=== PATIENT | male | born 2000 | race Caucasian/White ===

== ENCOUNTER 2019-11-17 15:45 | Emergency (ER) | payer OTHER, SELFPAY ==
[2019-11-17 15:46] VITALS: BP 148/77; PULSE 99; RESP 16; TEMP 37.3; O2SAT 98; BMI 23.7
--- NOTE | 2019-11-17 16:10 | HMH.EDUTC ---
[facility] [place] Clinical Impression: UTI (urinary tract infection) Qualifiers: Urinary tract infection type: site unspecified Hematuria presence: without hematuria Qualified Code(s): N39.0 - Urinary tract infection, site not specified Disposition: Home, Self-Care Condition on Discharge: Good Instructions: DI for Urinary Tract Infection (UTI) Additional Instructions: Drink plenty of fluids. Take tylenol or ibuprofen for pain or fever. Follow up with your regular doctor. GO TO THE ER FOR ANY WORSENING SYMPTOMS Prescriptions: Sulfamethoxazole/Trimethoprim [Bactrim DS tablet] 1 each PO BID 10 Days #20 tab Transmission Status: Received by [id number] Referrals: PCP,No [Primary Care Provider] - Time of Disposition: 16:29 Medical Decision Making - Medical Records Medical records reviewed: No: I reviewed the patient's medical records. - Rg Inquiry Pt receiving controlled substance: No Vital Signs: 11/17/19 15:46 11/17/19 16:17 11/17/19 16:30 Temperature 99.2 F 99.5 F 99.5 F Temperature Source Oral Oral Pulse Rate 90 Pulse Rate [Left Radial] 99 H 90 Respiratory Rate 16 14 14 Blood Pressure 114/77 Blood Pressure [Right Arm] 148/77 H 114/77 Blood Pressure Mean [Right Arm] 100 89 Blood Pressure Source [Right Arm] Automatic Cuff Blood Pressure Position [Right Arm] Sitting Sitting 02 Sat by Pulse Oximetry 98 96 Oxygen Delivery Method Room Air Room Air - Lab Data Lab Results 11/17/19 16:10: Urine Color Yellow, Urine Appearance Clear, Urine pH 6.0, Ur Specific [place] 1.025, Urine Protein Negative, Urine Glucose (UA) Negative, Urine Ketones Negative, Urine Blood 2+, Urine Nitrate Negative, Urine Bilirubin Negative, Urine Urobilinogen 0.2, Ur Leukocyte Esterase Negative [facility] [place] HPI - General Stated complaint: possible uti Time Seen by Provider: 11/17/19 16:10 Mode of Arrival: Ambulatory Source of Information: Patient Limitations: No Limitations Description of Symptoms (Recalled from Triage Doc. by RN): TO ED PER [facility] CAR WITH C/O BURNING AFTER URINATION X 2 DAYS. DENIES FEVER, CHILLS, NAUSEA, VOMITING. - History of Present Illness Provider Complaint: He c/o low back pain and burning after he urinates for the past 2 days. He also c/o low back pain, but he describes it as mild. He denies any personal history of kidney stones. - Related Data Previous Rx's Medication Instructions Recorded Sulfamethoxazole/Trimethoprim 1 each PO BID 10 Days #20 tab 11/17/19 [Bactrim DS tablet] Allergies Allergy/AdvReac Type Severity Reaction Status Date / Time No Known Allergies Allergy Verified 06/19/19 13:53 [facility] History - Hepatitis A Screen Attestation statement:: This patient has been screened for Hepatitis A risk factors. I have reviewed the patient's past medical history: Yes Other Surgeries: Yes: No Previous Surgery - Social History Smoking Status: Current every day smoker Tobacco Type: e-cigarettes Alcohol Intake: never Substance Use Type: denies use Occupational Status: employed ROS Obtained: Yes All systems reviewed & no additional complaints - Constitutional Constitutional: Denies chills, Denies fever(s) - Eyes Eyes: Denies eye discharge - ENT Ears, Nose, Mouth, and Throat: Denies dizziness, Denies otalgia, Denies sore throat - Cardiovascular Cardiovascular: Denies chest pain - Genitourinary Male Genitourinary: Reports as per HPI Physical Exam - General General appearance: alert, in no apparent distress - Head Head exam: atraumatic, normocephalic, normal inspection - Eye Eye exam: Present: normal appearance, PERRL, EOMI - ENT ENT exam: Present: normal exam, normal oropharynx, mucous membranes moist, TM's normal bilaterally, normal external ear exam - Neck Neck exam: Present: normal inspection, full ROM, trachea midline. Absent: meningismus, lymphadenopathy - Chest Chest inspection: Present: normal inspection, symmet
[2019-11-17 16:11] LABS: Color,Urine Yellow (Yellow)
[2019-11-17 16:12] LABS: Apearance,Urine Clear (Clear); Blood, Urine 2+ (Negative); Glucose,Urine (UA) Negative (Negative); Ketones,Urine Negative (Negative); Protein,Urine Negative (Negative); Specific Gravity, Urine 1.025 (1.005-1.030)
[2019-11-17 16:13] LABS: Bilirubin,Urine Negative (Negative); UTC Leukocyte Esterase,Urine Negative (Negative); UTC Nitrate,Urine Negative (Negative); Urobilinogen,Urine 0.2 EU/dl (0.2)
[2019-11-17 16:17] VITALS: BP 114/77; PULSE 90; RESP 14; TEMP 37.5; O2SAT 96; BMI 23.7
[2019-11-17 16:30] VITALS: BP 114/77; PULSE 90; RESP 14; TEMP 37.5; O2SAT 96
[2019-11-20 19:20] LABS: Neisseria gonorrhoeae, NAA Negative (Negative)
== END 2019-11-17 16:34 | disposition home or self-care (01) ==
LOC: UTC 16:22
PROVIDERS: Emergency Provider Nurse Practitioner Family
DX: N30.00 Acute cystitis without hematuria (principal); F17.290 Nicotine dependence, other tobacco product, uncomplicated
CPT/HCPCS: 81003; 87086; 87491; 87591; 99201

== ENCOUNTER 2020-06-08 01:26 | Emergency (ER) | payer OTHER, SELFPAY ==
[2020-06-08 01:44] VITALS: BP 143/83; PULSE 98; RESP 16; TEMP 36.8; O2SAT 98; BMI 25.0
--- NOTE | 2020-06-08 01:53 | XR_ITS ---
PROCEDURE: XR RIBS RT MIN 3V W CXR1V CLINICAL INDICATION: Pain after twisting motion Right rib pain COMPARISON: No exams were available for comparison FINDINGS: Frontal view of the chest shows no acute finding. Multiple views of the right ribs show no displaced fracture lytic change or blastic change. If pain persists, consider follow-up exam or CT with 3D reformats in 7-10 days. IMPRESSION: No acute findings. Dictated by: Luca Pathak MD 06/08/2020 08:21 Luca Pathak MD in [place] 06/08/2020 08:21
--- NOTE | 2020-06-08 02:40 | CT_ITS ---
PROCEDURE: CT CHEST WO CON CLINICAL INDICATION: right rib pain Posttraumatic pain COMPARISON: No exams were available for comparison TECHNIQUE: Axial images obtained with sagittal and coronal reformats. All CT scans at the facility use one or more dose reduction, viz: automated exposure control, ma/kV adjustment per patient size (including targeted exams where dose is matched to indication, i.e. head), or iterative reconstruction technique. FINDINGS: HEART AND MEDIASTINAL STRUCTURES: Unremarkable. LUNGS AND PLEURAL SPACES: Unremarkable. BONY STRUCTURES: No acute fracture apparent. There is an old fracture involving the 10th rib posteriorly UPPER ABDOMEN: Unremarkable. ADDITIONAL FINDINGS: No other significant abnormalities. IMPRESSION: Chronic appearing left 10th rib fracture otherwise negative Dictated by: Luca Pathak MD 06/08/2020 10:07 Luca Pathak MD in [place] 06/08/2020 10:07
--- NOTE | 2020-06-08 02:58 | HMH.EDGENADL ---
ED Disposition Clinical Impression: Rib fracture Qualifiers: Encounter type: initial encounter Rib fracture type: single rib Fracture type: closed Laterality: right Qualified Code(s): S22.31XA - Fracture of one rib, right side, initial encounter for closed fracture Disposition: Home, Self-Care Condition on Discharge: Good Instructions: DI for Acute Pain -- Adult Additional Instructions: use meds and see pcp for follow up Referrals: PCP,No [Primary Care Provider] - - Critical Care Critical Care Time: No Attestation: On 06/08/20, the high probability of a clinically significant, sudden or life threatening deterioration of the following system(s) required my full and direct attention, intervention and personal management. The time I documented below is in addition to time spent performing reported procedures but includes the following listed in this critical care notation. Medical Decision Making - Medical Records Medical records reviewed: Yes: I reviewed the patient's medical records. - Rg Inquiry Pt receiving controlled substance: No Vital Signs: 06/08/20 01:44 Temperature 98.2 F Temperature Source Oral Pulse Rate [Right] 98 H Respiratory Rate 16 Blood Pressure [Right Arm] 143/83 H Blood Pressure Mean [Right Arm] 103 Blood Pressure Source [Right Arm] Automatic Cuff Blood Pressure Position [Right Arm] Sitting 02 Sat by Pulse Oximetry 98 Oxygen Delivery Method Room Air - Lab Data Lab results reviewed: Yes: I reviewed the patient's lab results. Orders (Tests/Meds): ORDERS Category Date Time Status CT chest wo con Stat Cat Scan 06/08/20 02:40 Ordered XR ribs RT min 3V w CXR1V Stat Exams 06/08/20 01:53 Taken - Radiology Data #1 Image(s): Chest Image Reviewed: Yes I reviewed the patient's radiology image Preliminary Findings: Normal/NAD - CT Data CT Scan: Chest Time Received: 03:[address] Reviewed: Yes: I have viewed the radiologist's interpretation Preliminary Findings: Abnormal (rib fx ) General Adult HPI - General Chief complaint: PAIN Stated complaint: Rt side rib pain Time Seen by Provider: 06/08/20 02:00 Mode of Arrival: Ambulatory Source of Information: Patient, Medical Record Limitations: No Limitations Description of Symptoms (Recalled from ER Triage Doc. by RN): Pt states he heard a pop to his right ribs after a twisting motion and now has right rib pain about 1300 today - History of Present Illness HPI narrative: has popping sd after has mm spasm Onset (ago): hour(s) Location: chest Severity: moderate Consistency: intermittent Associated symptoms: denies other symptoms Treatments prior to arrival: none - Related Data Home Medications Medication Instructions Recorded Confirmed No Known Home Medications 06/08/20 06/08/20 Allergies Allergy/AdvReac Type Severity Reaction Status Date / Time No Known Allergies Allergy Verified 06/19/19 13:53 [facility] History - Hepatitis A Screen Drug use history?: No High risk sexual behaviors?: No History of sexually transmitted infection?: No Currently employed?: No Childcare worker?: No Do you have indoor plumbing?: Yes Do you have electricity?: Yes Attestation statement:: This patient has been screened for Hepatitis A risk factors. I have reviewed the patient's past medical history: Yes Medical History: Denies:: Diabetes Mellitus Type 1, Diabetes Mellitus Type 2 Other Surgeries: Yes: No Previous Surgery - Social History Smoking Status: Current every day smoker Tobacco Type: e-cigarettes # Packs/Day (cigarettes): 1 Alcohol Intake: never Substance Use Type: denies use Occupational Status: employed ROS Obtained: Yes All systems reviewed & no additional complaints - Constitutional Constitutional: Denies fever(s) - Eyes Eyes: Denies change in vision - ENT Ears, Nose, Mouth, and Throat: Denies abnormal hearing - Cardiovascular Cardiovascular: Reports as per HPI, Reports chest pain,
[2020-06-08 03:56] VITALS: BP 138/84; PULSE 92; RESP 16; TEMP 36.8; O2SAT 98
== END 2020-06-08 03:58 | disposition home or self-care (01) ==
PROVIDERS: Emergency Provider Emergency Medicine
DX: S22.31XA Fracture of one rib, right side, initial encounter for closed fracture (principal); X50.1XXA Overexertion from prolonged static or awkward postures, initial encounter; Y92.019 Unspecified place in single-family (private) house as the place of occurrence of the external cause
CPT/HCPCS: 71101; 71250; 99282

== ENCOUNTER 2021-01-03 09:08 | Emergency (ER) | payer OTHER, SELFPAY ==
[2021-01-03 09:14] VITALS: BP 157/94; PULSE 86; RESP 18; O2SAT 97; BMI 27.7
[2021-01-03 09:15] VITALS: BP 157/94; PULSE 86; RESP 18; TEMP 37.3; O2SAT 97; BMI 27.8
--- NOTE | 2021-01-03 09:50 | HMH.EDUTC ---
[facility] [place] Dis[place] Clinical Impression: Upper respiratory infection, viral Disposition: Home, Self-Care Condition on Discharge: Good Instructions: DI for Viral Upper Respiratory Infection -- Adult Additional Instructions: covid swab was sent to lab, call later today for results. self isolate until test results are known to be negative No sign of a bacterial infection. Likely viral. Viruses can take 7-14 days to run their course. Nasal saline and bulb syringe or nose Marisela to remove nasal drainage to help with nasal congestion. Hard to eat, drink, sleep with nasal congestion so important to keep this cleaned out. Monitor temp. Tylenol or Motrin as needed for pain or fever Encourage fluids, water, Gatorade, Powerade, Pedialyte if infant/toddler/child Warm salt water gargles Warm fluids Sore throat lozenges Sleep elevated Humidifier/vaporizer Follow-up immediately for new or worsening symptoms or no noticeable improvement over the next 48-72 hours. Prescriptions: predniSONE [Prednisone 20mg Tab] 20 mg PO BID #10 tab Transmission Status: Pending to [id number] Referrals: Provider,Referral, [Primary Care Provider] - Forms: Work/School Release Time of Disposition: 10:03 Medical Decision Making - Rg Inquiry Pt receiving controlled substance: No Vital Signs: 01/03/21 09:14 01/03/21 09:15 Temperature 99.2 F Temperature Source Oral Pulse Rate [Left Radial] 86 86 Respiratory Rate 18 18 Blood Pressure [Right Arm] 157/94 H 157/94 H Blood Pressure Mean [Right Arm] 115 115 Blood Pressure Source [Right Arm] Automatic Cuff Automatic Cuff Blood Pressure Position [Right Arm] Sitting Sitting 02 Sat by Pulse Oximetry 97 97 Oxygen Delivery Method Room Air Room Air Orders (Tests/Meds): ORDERS Category Date Time Status Full Resp Panel w/COVID ([facility]) Routine Lab 01/03/21 09:54 Ordered [facility] [place] HPI - General Chief complaint: [facility] Stated complaint: cough,runny nose,headache Time Seen by Provider: 01/03/21 09:50 Mode of Arrival: Ambulatory Source of Information: Patient Limitations: No Limitations Description of Symptoms (Recalled from Triage Doc. by RN): PATIENT C/O RUNNY NOSE AND DRY COUGH X 3 DAYS HEENT Symptoms (Recalled from RN notes): Yes Resp Symptoms (Recalled from RN notes): Yes Skin Symptoms (Recalled from RN notes): No MS Symptoms (Recalled from RN notes): No Functional Status (Recalled from RN notes): WNL - History of Present Illness Provider Complaint: 20 yr old male presnets for cough. pt states he was exposed to someone with rsv 2 weeks ago and feels better all symptoms improved but cough is staying. - Related Data Previous Rx's Medication Instructions Recorded predniSONE [Prednisone 20mg 20 mg PO BID #10 tab 01/03/21 Tab] Allergies Allergy/AdvReac Type Severity Reaction Status Date / Time No Known Allergies Allergy Verified 06/19/19 13:53 - Worker's Comp Is this a Worker's Comp case?: No [facility] History - Hepatitis A Screen Drug use history?: No High risk sexual behaviors?: No History of sexually transmitted infection?: No Currently employed?: No Childcare worker?: No Do you have indoor plumbing?: Yes Do you have electricity?: Yes Attestation statement:: This patient has been screened for Hepatitis A risk factors. I have reviewed the patient's past medical history: Yes Medical History: Denies:: Diabetes Mellitus Type 1, Diabetes Mellitus Type 2 Other Surgeries: Yes: No Previous Surgery - Social History Smoking Status: Current every day smoker Tobacco Type: e-cigarettes # Packs/Day (cigarettes): 1 Alcohol Intake: never Substance Use Type: denies use Occupational Status: employed ROS Obtained: Yes Systems reviewed as appropriate & no additional complaints - Constitutional Constitutional: Reports system reviewed and no additional complaints, except as docu, Denies fever(s) - Eyes Eyes: Reports system reviewed and n
[2021-01-03 09:59] VITALS: BP 157/94; PULSE 86; RESP 18; TEMP 37.3; O2SAT 97
[2021-01-03 10:11] LABS: Adenovirus,PCR Not Detected (NotDetected); Bordetella Pertussis Not Detected (NotDetected); Chlamydophila Pneumoniae, PCR Not Detected (NotDetected); Coronavirus 229E Not Detected (NotDetected); Coronavirus NL63 Not Detected (NotDetected); Coronavirus OC43 Not Detected (NotDetected); Coronovirus HKU1,PCR Not Detected (NotDetected); Human Metapneumovirus Not Detected (NotDetected); Influenza A, PCR Not Detected (NotDetected); Influenza AH1, 2009 Not Detected (NotDetected); Influenza AH1, PCR Not Detected (NotDetected); Influenza AH3,PCR Not Detected (NotDetected); Influenza B, PCR Not Detected (NotDetected); Mycoplasma Pneumoniae, PCR Not Detected (NotDetected); Parainfluenza 1, PCR Not Detected (NotDetected); Parainfluenza 2, PCR Not Detected (NotDetected); Parainfluenza 3, PCR Not Detected (NotDetected); Parainfluenza 4, PCR Not Detected (NotDetected); Respiratory Syncytial Virus Not Detected (NotDetected); Rhinovirus/Enterovirus Not Detected (NotDetected)
[2021-01-03 11:47] LABS: Coronavirus 19, PCR Detected (NotDetected)
== END 2021-01-03 10:06 | disposition home or self-care (01) ==
PROVIDERS: Emergency Provider Nurse Practitioner Family
DX: U07.1 COVID-19 (principal); J06.9 Acute upper respiratory infection, unspecified; F17.290 Nicotine dependence, other tobacco product, uncomplicated
CPT/HCPCS: 87581; 87632; 87798; 99202; C9803; G0463; U0003; U0005

== ENCOUNTER 2021-01-24 22:10 | Emergency (ER) | payer OTHER, SELFPAY ==
[2021-01-24 22:11] VITALS: BP 164/80; PULSE 97; RESP 16; TEMP 36.6; O2SAT 97; BMI 27.7
--- NOTE | 2021-01-24 22:22 | CT_ITS ---
PROCEDURE INFORMATION: Exam: CT Abdomen And Pelvis With Contrast Exam date and time: 01/24/2021 10:22 PM Age: 20 years old Clinical indication: Abdominal pain; Generalized; Additional info: Abd pain TECHNIQUE: Imaging protocol: Computed tomography of the abdomen and pelvis with contrast. Radiation optimization: All CT scans at this facility use at least one of these dose optimization techniques: automated exposure control; mA and/or kV adjustment per patient size (includes targeted exams where dose is matched to clinical indication); or iterative reconstruction. Contrast material: ISOVUE; Contrast volume: 70 ml; Contrast route: IV; COMPARISON: CT CHEST WO CON 06/08/2020 2:52 AM FINDINGS: Lungs: No mass/infiltrate at either lung base. No pleural effusion. Liver: The liver is normal in size and attenuation. No intrahepatic biliary dilitation. Gallbladder and bile ducts: Normal. No calcified stones. No ductal dilation. Gallbladder wall thickness is normal. Pancreas: Normal. No ductal dilation. Spleen: Normal. No splenomegaly. Adrenal glands: Normal. No mass. Kidneys and ureters: Normal. No hydronephrosis. Stomach and bowel: Unremarkable. No obstruction. No mucosal thickening. Small bowel mesentery is normal. Appendix: Unremarkable. Intraperitoneal space: Unremarkable. No free air. No significant fluid collection. Vasculature: Unremarkable. No abdominal aortic aneurysm. Lymph nodes: There is small visible lymph nodes identified within mesentery of the right lower quadrant and the periaortic region. The largest of these measures 11 mm in size. No enlarged lymph nodes. Urinary bladder: Unremarkable as visualized. Limited distention. Reproductive: Unremarkable as visualized. Bones/joints: There are old healed fractures of the posterior aspect of the left 10th rib and the right 11th rib. No acute fracture. Soft tissues: Unremarkable. IMPRESSION: No acute process within the abdomen or pelvis.
[2021-01-24 22:25] LABS: Microscopic, Urine URINE MICROSCOPIC (MICROSCOPIC)
[2021-01-24 22:27] LABS: Appearance,Urine CLEAR (Clear); Bilirubin,Urine Negative (Negative); Blood, Urine TRACE-L (Negative); Color,Urine YELLOW (Yellow); Glucose,Urine (UA) Negative (Negative); Ketones,Urine Negative (Negative); Leukocyte Esterase,Urine Negative (Negative); Nitrate,Urine Negative (Negative); PH,Urine 6.5 (5.0-8.5); Protein,Urine Negative (Negative); Specific Gravity, Urine <= 1.005 (1.005-1.030); Urobilinogen,Urine 0.2 EU/dl (0.2)
[2021-01-24 22:42] LABS: Basophils # 0.1 K/mm3 (0-0.2); Basophils % 0.9 % (0.1-2.0); Eosinophils # 0.3 K/mm3 (0.0-0.4); Eosinophils % 2.9 % (0.1-12.0); Hematocrit 42.6 % (42.0-52.0); Hemoglobin 14.3 g/dL (14.1-18.0); Lymphocytes # 3.5 K/mm3 (0.7-4.5); Mean Corpuscular HGB Conc 33.6 g/dL (31.8-35.4); Mean Corpuscular Hemoglobin 29.9 pg (27.0-31.2); Mean Corpuscular Volume 89.1 fl (80-94); Mean Platelet Volume 7.5 fl (7.4-10.4); Monocytes # 0.5 K/mm3 (0.1-1.0); Monocytes % 5.2 % (1.7-9.3); Neutrophils # 5.1 K/mm3 (1.8-7.8); Platelet Count 347 K/mm3 (142-424); Red Blood Count 4.78 M/mm3 (4.60-6.20); Red Cell Distribution Width 13.2 % (11.5-17.5); White Blood Count 9.4 K/mm3 (4.8-10.8)
[2021-01-24 22:44] LABS: RBC,Urine Occasional #/hpf (0-3); WBC,Urine Occasional #/hpf (0-3)
[2021-01-24 22:49] LABS: Alanine Aminotransferase 38 U/L (12-78); Albumin Level 4.5 g/dl (3.5-5.0); Albumin/Globulin Ratio 1.6 (1.1-1.8); Alkaline Phosphatase 99 U/L (38-126); Amylase 91 U/L (30-110); Anion Gap 12.6 mEq/L (5-15); Aspartate Amino Transferase 32 U/L (17-59); Blood Urea Nitrogen 13 mg/dl (9-20); Calcium 9.3 mg/dl (8.4-10.2); Carbon Dioxide 29 mmol/L (22.0-30.0); Chloride 102 mmol/L (98-107); Creatinine Clearance Estimated 197 mL/min (50-200); Estimated Glomerular Filt Rate 122 ml/min (>60); GFR (African American) 148 ML/MIN (>60); Globulin 2.8 g/dL (1.3-3.2); Glucose 107 mg/dl (74-100); Lipase 245 U/L (23-300); Potassium 3.6 mmoL/L (3.5-5.1); Sodium 140 mmol/L (136-145); Total Protein,Serum 7.3 g/dl (6.3-8.2)
[2021-01-24 22:50] LABS: Bilirubin,Total 0.1 mg/dl (0.2-1.3)
[2021-01-24 22:55] LABS: C-Reactive Protein 7.4 mg/L (0-4)
[2021-01-24 23:05] LABS: Erythrocyte Sedimentation Rate 23 mm/hr (0-15)
[2021-01-24 23:09] LABS: Procalcitonin 0.047 ng/mL (0.0-2.0)
--- NOTE | 2021-01-25 01:10 | HMH.EDNVD ---
ED Disposition Clinical Impression: Abdominal pain Qualifiers: Abdominal location: epigastric Qualified Code(s): R10.13 - Epigastric pain Disposition: Home, Self-Care Condition on Discharge: Good Instructions: DI for Acute Abdominal Pain Additional Instructions: will need out patient eval Referrals: Provider,Referral, [Primary Care Provider] - - Critical Care Critical Care Time: No Attestation: On 01/24/21, the high probability of a clinically significant, sudden or life threatening deterioration of the following system(s) required my full and direct attention, intervention and personal management. The time I documented below is in addition to time spent performing reported procedures but includes the following listed in this critical care notation. Medical Decision Making - Medical Records Medical records reviewed: Yes: I reviewed the patient's medical records. - Rg Inquiry Pt receiving controlled substance: No Vital Signs: 01/24/21 22:11 Temperature 97.8 F Temperature Source Oral Pulse Rate [Right] 97 H Respiratory Rate 16 Blood Pressure [Right Arm] 164/80 H Blood Pressure Mean [Right Arm] 108 02 Sat by Pulse Oximetry 97 - Lab Data Lab results reviewed: Yes: I reviewed the patient's lab results. Lab Results 01/24/21 22:15: Urine Color Yellow, Urine Appearance Clear, Urine pH 6.5, Ur Specific [place] <= 1.005, Urine Protein Negative, Urine Glucose (UA) Negative, Urine Ketones Negative, Urine Blood Trace-l, Urine Nitrate Negative, Urine Bilirubin Negative, Urine Urobilinogen 0.2, Ur Leukocyte Esterase Negative, Urine RBC Occasional, Urine WBC Occasional, Ur Squamous Epith Cells None, Urine Bacteria None 01/24/21 22:31: WBC 9.4, RBC 4.78, Hgb 14.3, Hct 42.6, MCV 89.1, MCH 29.9, MCHC 33.6, RDW 13.2, Plt Count 347, MPV 7.5, Neut % (Auto) 54.0, Lymph % (Auto) 37.0, [place] % (Auto) 5.2, Eos % (Auto) 2.9, Baso % (Auto) 0.9, Neut # (Auto) 5.1, Lymph # (Auto) 3.5, [place] # (Auto) 0.5, Eos # (Auto) 0.3, Baso # (Auto) 0.1, ESR 23 H 01/24/21 22:31: Sodium 140, Potassium 3.6, Chloride 102, Carbon Dioxide 29, Anion Gap 12.6, BUN 13, Creatinine 0.80, Estimated Creat Clear 197, Estimated GFR 122, Est GFR ( Amer) 148, Glucose 107 H, Calcium 9.3, Total Bilirubin 0.1 L, AST 32, ALT 38, Alkaline Phosphatase 99, C-Reactive Protein 7.4 H, Total Protein 7.3, Albumin 4.5, Globulin 2.8, Albumin/Globulin Ratio 1.6, Amylase 91, Lipase 245, Procalcitonin 0.047 Result diagrams: 01/24/21 22:31 01/24/21 22:31 Orders (Tests/Meds): ED MEDICATIONS Generic Name Dose Route Start Last Admin Trade Name Freq PRN Reason Stop Dose Admin Sodium Chloride 1,000 mls @ 999 mls/hr 01/24/21 22:30 01/24/21 22:32 Sod Chlor 0.9% 1000ml Bag IV 01/24/21 23:30 999 mls/hr .Q1H1M ROBERT Administration Sodium Chloride 8 ml 01/24/21 22:24 Sodium Chloride 0.9% 10ml Vial IV 02/23/21 22:23 NEEDED PRN dilute pepcid Discontinued Medications Generic Name Dose Route Start Last Admin Trade Name Freq PRN Reason Stop Dose Admin Famotidine 20 mg 01/24/21 22:24 01/24/21 22:34 Famotidine 20mg/2ml Vial IV 01/24/21 22:25 20 mg ONCE ONE Administration Iopamidol 70 ml 01/24/21 22:49 01/24/21 22:50 Iopamidol-370 (76%);100ml Bottle IV 01/24/21 22:50 70 ml ONCE ONE Administration Ketorolac Tromethamine 30 mg 01/24/21 22:24 01/24/21 22:32 Ketorolac 30mg/Ml Vial IV 01/24/21 22:25 30 mg ONCE ONE Administration Metoclopramide HCl 10 mg 01/24/21 22:24 01/24/21 22:34 Metoclopramide Hcl 10mg/2ml Vial IVP 01/24/21 22:25 10 mg ONCE ONE Administration Ondansetron HCl 4 mg 01/24/21 22:24 01/24/21 22:32 Ondansetron 4mg/2ml Vial IV 01/24/21 22:25 4 mg ONCE ONE Administration Sodium Chloride 10 ml 01/24/21 22:49 01/24/21 22:50 Sodium Chloride 0.9% 10ml Syr (Rad Only) IV 01/24/21 22:50 10 ml ONCE ONE Administration - CT Data CT Scan: Abdomen, Pelvis Time
[2021-01-25 01:41] VITALS: BP 147/81; PULSE 82; RESP 16; TEMP 36.6; O2SAT 98
== END 2021-01-25 01:45 | disposition home or self-care (01) ==
PROVIDERS: Emergency Provider Emergency Medicine
DX: R10.13 Epigastric pain (principal); F17.290 Nicotine dependence, other tobacco product, uncomplicated
CPT/HCPCS: 74177; 80053; 81001; 82150; 83690; 84145; 85025; 85651; 86140; 96365; 96375; 99283; J2405; Q9967

== ENCOUNTER 2022-09-13 20:05 | Emergency (ER) | payer BC, SELFPAY ==
[2022-09-13 20:06] VITALS: BP 156/88; PULSE 93; RESP 18; TEMP 37.1; O2SAT 98; BMI 27.8
--- NOTE | 2022-09-13 20:27 | HMH.EDGENADL ---
Discharge Plan Disposition Patient Disposition: Home, Self-Care Prescriptions Prescriptions: New ciprofloxacin HCl [Cipro] 500 mg tablet 500 mg PO BID Qty: 14 0RF doxycycline hyclate 100 mg capsule 100 mg PO BID Qty: 14 0RF Referrals Follow up/Referrals: Provider,Referral, [Primary Care Provider] - See instructions Activity Restrictions/Add. Instructions Additional Instructions/Restrictions: Follow-up with your primary care physician within the next few days. Return the emergency department should you have worsening pain swelling or any other concerns within the next 8 hours Clinical Impressions Clinical Impression: Cellulitis of forearm Instructions Patient Instructions: DI for Skin Abscess Discharge ED Provider: Brittany (ED)Mohan General Adult HPI General Chief complaint: Skin/Abscess/Foreign Body Stated complaint: possiblr infected tattoo Time Seen by Provider: 09/13/22 20:10 Mode of Arrival: Ambulatory Source of Information: Patient Limitations: No Limitations Description of Symptoms (Recalled from ER Triage Doc. by RN): pt c/o possible infection on left afm after tattoo done 2 days ago. the pt states that he has done all recomended care thus far. there is sparatic bubbling in certain shaded areas of the tattoo. History of Present Illness HPI narrative: 22-year-old male presents with tach due to his left arm that is red and swollen now. He says he has been taking care of it with antibiotic ointment however it has gotten infected. There is babbling over the tattoo. No fever chills nausea vomiting abdominal pain chest pain or headache. Related Data Previous Rx's Medication Instructions Recorded ciprofloxacin HCl 500 mg tablet 500 mg PO BID #14 tabs 09/13/22 (Cipro) doxycycline hyclate 100 mg capsule 100 mg PO BID #14 caps 09/13/22 Allergies Allergy/AdvReac Type Severity Reaction Status Date / Time No Known Allergies Allergy Verified 06/19/19 13:53 [facility] Disclaimer: The information contained in this section may have been updated after the patient was seen, as this information can be updated by other users. Social History Smoking Status: Current every day smoker tobacco type: e-cigarettes alcohol intake: never substance use type: denies use current occupational status: employed Travel in the last 8 weeks: None ROS Obtained: Yes All systems reviewed & no additional complaints except as documented Constitutional Constitutional: Denies fatigue and Denies fever(s) Eyes Eyes: Denies dry eyes ENT Ears, Nose, Mouth, and Throat: Denies hearing loss Cardiovascular Cardiovascular: Denies diaphoresis and Denies dyspnea Respiratory Respiratory: Denies dyspnea and Denies wheezing Gastrointestinal Gastrointestingal: Denies coffee ground emesis Genitourinary Male Genitourinary: Denies flank pain Musculoskeletal Musculoskeletal: Denies joint swelling Integumentary/Breasts Skin/Breast: Denies furuncle Neurologic Neurologic: Denies confusion Endocrine Endocrine: Denies fatigue Hematologic/Lymphatic Henatologic/Lymphatic: Denies easy bleeding Allergic/Immunologic Allergic/Immunologic: Denies wheezing Physical Exam General General appearance: alert and in no apparent distress Eye Eye exam: Present PERRL and EOMI ENT ENT exam: Present normal exam and normal oropharynx Neck Neck exam: Present normal inspection Chest Chest inspection: Present symmetric chest wall rise Respiratory Respiratory exam: Present normal lung sounds bilaterally; Absent respiratory distress Cardiovascular Cardiovascular exam: Present regular rate and normal rhythm Abdominal Exam Abdominal exam: Present soft; Absent distention, tenderness, guarding, rebound, Rand's sign or tenderness at McBur[place]'s Point Rectal Exam Rectal exam: Present deferred Back Exam Back exam: Present normal inspection Neurological Exam Neurological exam: Present alert and oriented X3 Psychiatric Psychiatri
[2022-09-13 20:44] VITALS: BP 137/72; PULSE 68; RESP 16; TEMP 36.8; O2SAT 98
== END 2022-09-13 20:46 | disposition home or self-care (01) ==
PROVIDERS: Emergency Provider Emergency Medicine
DX: L03.114 Cellulitis of left upper limb (principal); F17.290 Nicotine dependence, other tobacco product, uncomplicated
CPT/HCPCS: 99283; 99284